=== PATIENT | male | born 1980 | race Caucasian/White ===

== ENCOUNTER 2017-08-26 13:10 | Emergency (ER) | payer SELFPAY ==
[2017-08-26 13:47] VITALS: BP 106/69; PULSE 76; TEMP 98; BMI 21.1
--- NOTE | 2017-08-26 14:57 | PDOC ---
History of Present Illness - General Chief Complaint: Abscess Boil Stated Complaint: ABSCESS BOIL Time Seen by Provider: 08/26/17 14:27 History Source: Patient Exam Limitations: No Limitations - History of Present Illness Initial Comments: 08/26/17 15:00 36-year-old male presents the ED with complaints of a tender lump in his rectal area. Patient denies fever, chills or bloody stools, or recent constipation. Pt states intermittent pain and lump the past year that has resolved without intervention. Timing/Duration: intermittent Severity: mild Associated Symptoms: reports: denies symptoms Past History - Past Medical History Allergies/Adverse Reactions: Allergies Allergy/AdvReac Type Severity Reaction Status Date / Time Penicillins Allergy Verified 08/26/17 13:41 Home Medications: Ambulatory Orders Pramoxine HCl/Zinc Oxide [Hemorrhoid 1%-12.5% Ointment] 1 applic TP TID PRN #1 tube 08/26/17 Other medical history: Denies - Immunization History Immunization Up to Date: Yes - Suicide/Smoking/Psychosocial Hx Smoking History: Current every day smoker Number of Cigarettes Smoked Daily: 4 Information on smoking cessation initiated: No Hx Alcohol Use: No Drug/Substance Use Hx: No Substance Use Type: None Patient Lives Alone: No Lives with/in: spouse/SO Review of Systems - Review of Systems Able to Perform ROS?: Yes Is the patient limited Qatari proficient: No Constitutional: No: Symptoms Reported HEENTM: No: Symptoms Reported Respiratory: No: Symptoms reported Cardiac (ROS): No: Symptoms Reported ABD/GI: No: Symptoms Reported Musculoskeletal: No: Symptoms Reported Integumentary: No: Symptoms Reported Neurological: No: Symptoms reported Endocrine: No: Symptoms Reported Hematologic/Lymphatic: No: Symptoms Reported *Physical Exam - Vital Signs Last Vital Signs Temp Pulse Resp BP Pulse Ox 98.0 F 76 16 106/69 98 08/26/17 13:42 08/26/17 13:42 08/26/17 13:42 08/26/17 13:42 08/26/17 13:42 - Physical Exam General Appearance: Yes: Nourished, Appropriately Dressed. No: Apparent Distress HEENT: negative: Pale Conjunctivae Respiratory/Chest: positive: Lungs Clear, Normal Breath Sounds. negative: Respiratory Distress, Accessory Muscle Use Cardiovascular: positive: Regular Rhythm, Regular Rate. negative: Murmur Gastrointestinal/Abdominal: positive: Soft. negative: Tenderness Rectal Exam: positive: normal rectal tone, hemorrhoids (small pea sized external hemorrhoid at 3 o clock. nonthrombosed and surrounding skin intact) Medical Decision Making - Medical Decision Making 08/26/17 16:53 Pt with tender inflammed hemorrhoid. Pt will be discharged with topical cream. *DC/Admit/Observation/Transfer Diagnosis at time of Disposition: External hemorrhoid - Discharge Dispostion Disposition: HOME Condition at time of disposition: Good - Prescriptions Prescriptions: Pramoxine HCl/Zinc Oxide [Hemorrhoid 1%-12.5% Ointment] 1 applic TP TID PRN #1 tube PRN Reason: Hemorrhoids - Patient Instructions Printed Discharge Instructions: DI for Hemorrhoids Additional Instructions: Please use creams as prescribed and read over instructions about hemorrhoids. Return to the ED if symptoms worsen.
== END 2017-08-26 16:22 | disposition home or self-care (01) ==
LOC: JER 13:10
DX: K64.4 Residual hemorrhoidal skin tags (principal); F17.210 Nicotine dependence, cigarettes, uncomplicated
CPT/HCPCS: 99282-25